=== PATIENT | female | born 1965 | race Caucasian/White ===

== ENCOUNTER 2017-10-27 23:17 | Emergency (ER) | payer BC, OTHER ==
[~2017-10-27] VITALS: Ht 152.4 cm; Wt 59.0 kg
[~2017-10-27 23:17] MED LIST: ADVAIR 250-501 EACH NASAL; ALBUTEROL2.5 MG/0.5 INH; CLONAZEPAM 1 MG1 M1 PO; FLEXERIL PO; GLUCOPHAGE1000 MG PO; GLYBURIDE 5 MG T5 M1 PO; HYDROXYZINE PAM50 MG PO; LEVAQUIN 500 M500 M2 PO; LEVEMIR SUBQ; METFORMIN HCL1000 M1 PO; NORCO 5-325 TA1 EACH PO; NORVASC 5 MG TAB5 MG PO; PREDNISONE 1 MG1 M1; PREDNISONE 10 M10 MG; PREDNISONE50 MG PO; SERTRALINE HCL100 MG PO; SINGULAIR 10 MG10 M1 PO; SYMBICORT160 MCG/4. INH; TRAMADOL 50 MG50 MG; TRAZODONE 150150 M1 PO; TUDORZA PRESS400 MCG; TYLENOL325 MG PO; VENTOLIN HFA 1818 GM INH; XANAX 0.5 MG0.5 M1 PO; ZANTAC 150MG T150 MG PO; ZESTRIL20 MG PO
[2017-10-27] MEDS ORDERED: NORCO 5-325 TA1 EACH PO (23:52)
== END 2017-10-28 00:03 | disposition home or self-care (01) ==
LOC: ER 23:17
DX: S43.402A Unspecified sprain of left shoulder joint, initial encounter (principal); F17.210 Nicotine dependence, cigarettes, uncomplicated; J44.9 Chronic obstructive pulmonary disease, unspecified; I10 Essential (primary) hypertension; E11.9 Type 2 diabetes mellitus without complications; Z91.030 Bee allergy status; Z88.8 Allergy status to other drugs, medicaments and biological substances; Z91.048 Other nonmedicinal substance allergy status; Z88.0 Allergy status to penicillin; Z91.013 Allergy to seafood; Z79.4 Long term (current) use of insulin; X58.XXXA Exposure to other specified factors, initial encounter; Y93.89 Activity, other specified; Y92.009 Unspecified place in unspecified non-institutional (private) residence as the place of occurrence of the external cause; Y99.8 Other external cause status

== ENCOUNTER 2018-06-11 19:32 | Emergency (ER) | payer BC, OTHER ==
[~2018-06-11] VITALS: Ht 152.4 cm; Wt 65.8 kg
[2018-06-11 20:04] LABS: ABSOLUTE NEUTROPHILS 7.2 thou/uL (1.4-8.2); BASOPHILS 1.1 % (0.0-2.0); EOSINOPHILS 1.6 % (0.0-3.0); HEMATOCRIT 41.4 % (37.0-47.0); HEMOGLOBIN 13.5 gm/dL (12.0-15.0); LYMPHOCYTES 15.6 % (24.0-44.0); MCH 28.6 pg (26.0-34.0); MCHC 32.7 g/dL (28.0-37.0); MCV 87.5 fL (80.0-100.0); MONOCYTES 7.3 % (1.0-8.0); PLATELET COUNT 227 thou/uL (150-400); POLYS 74.4 % (36.0-66.0); RBC 4.73 mil/uL (4.20-5.00); RDW 14.4 % (10.5-14.5); WBC 9.6 thou/uL (4.0-11.0)
[2018-06-11 20:17] LABS: ANION GAP 0 mmol/L (7-16); BUN 11 mg/dL (7-18); CALCIUM 9.4 mg/dL (8.5-10.1); CHLORIDE 100 mmol/L (98-107); CO2 40 mmol/L (21-32); CREATININE 0.5 mg/dL (0.6-1.0); GLUCOSE 151 mg/dL (74-106); SODIUM 140 mmol/L (136-145)
[2018-06-11 20:24] LABS: BE(vivo) 9.8 mmol/L (-2 to +3); HCO3 40.2 mmol/L (22.0-26.0); PO2 85.2 mmHg (80.0-100.0); sO2 94.7 % (92.0-98.0)
[2018-06-11 20:24] LABS: TROPONIN-I <0.06 ng/mL (<0.06)
[2018-06-11 20:25] LABS: pH 7.283 (7.360-7.450)
[2018-06-11 22:08] LABS: BE(vivo) 5.7 mmol/L (-2 to +3); HCO3 35.2 mmol/L (22.0-26.0); PO2 58.7 mmHg (80.0-100.0); pH 7.284 (7.360-7.450)
[2018-06-11] MEDS ORDERED: SYMBICORT160 MCG/4. INH (22:40)
[2018-06-11] MEDS ORDERED: PREDNISONE50 MG PO (22:40)
[2018-06-11 22:57] VITALS: BP 152/84
--- NOTE | 2018-06-12 08:37 | EKG ---
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1965 Requested By: Nella Banegas Order Number: [id number] MD: Shamar Chiang Measurements Intervals [place] Rate: 105 P: 89 MT: 135 QRS: 72 QRSD: 80 T: 81 QT: 336 QTc: 445 Interpretive Statements Sinus tachycardia Paired ventricular premature complexes Right atrial enlargement Compared to ECG 03/10/2014 04:51:05 Ventricular premature complex(es) now present Electronically Signed On 06-12-2018 8:37:24 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
== END 2018-06-11 23:07 | disposition home or self-care (01) ==
LOC: ER 19:32
PROVIDERS: Emergency Medicine
DX: J44.1 Chronic obstructive pulmonary disease with (acute) exacerbation (principal); I10 Essential (primary) hypertension; E11.9 Type 2 diabetes mellitus without complications; R09.02 Hypoxemia; F17.210 Nicotine dependence, cigarettes, uncomplicated; Z88.0 Allergy status to penicillin; Z91.030 Bee allergy status; Z91.013 Allergy to seafood